=== PATIENT | female | born 1990 | race Caucasian/White ===

== ENCOUNTER 2024-02-05 08:28 | Emergency (ER) | payer SELFPAY ==
[~2024-02-05] VITALS: Ht 152.4 cm; Wt 45.0 kg
[2024-02-05 08:30] VITALS: O2SAT 99
[2024-02-05 09:21] LABS: CLARITY URINE CLEAR (CLEAR); COLOR URINE YELLOW (YELLOW); GLUCOSE URINE NEGATIVE (NEGATIVE); KETONES URINE NEGATIVE (NEGATIVE); LEUKOCYTE ESTERASE URINE NEGATIVE (NEGATIVE); NITRITE URINE NEGATIVE (NEGATIVE); OCCULT BLOOD URINE NEGATIVE (NEGATIVE); PROTEIN URINE NEGATIVE (NEGATIVE); SPECIFIC GRAVITY URINE 1.023 (1.005-1.030); UROBILINOGEN URINE 0.2 E.U./dL (0.2-1.0)
[2024-02-05 09:22] LABS: BASOPHILS % 0.3 % (0.0-2.0); EOSINOPHILS % 0.9 % (0.0-5.0); HEMATOCRIT. 38.6 % (36.0-48.0); HEMOGLOBIN. 13.1 g/dL (12.0-16.0); LYMPHOCYTES % 15.7 % (20.0-50.0); MEAN CORPUSCULAR HEMOGLOBIN 31.1 pg (28.0-32.0); MEAN CORPUSCULAR HGB CONC 33.9 g/dL (31.0-37.0); MEAN CORPUSCULAR VOLUME 91.8 fL (81.0-99.0); MONOCYTES % 6.4 % (2.0-8.0); NEUTROPHILS % 76.7 % (40.0-76.0); PLATELET 378 x1000/uL (130-400); RED BLOOD CELL COUNT 4.21 mill/uL (4.2-5.4); RED CELL DISTRIBUTION WIDTH 13.2 % (11.6-14.6); WHITE BLOOD COUNT 13.1 x1000/uL (4.5-11.0)
[2024-02-05 09:25] LABS: CHLORIDE 105 mEq/L (98-107); POTASSIUM 3.6 mEq/L (3.5-5.1); SODIUM 138 mEq/L (136-145)
[2024-02-05 09:26] LABS: CARBON DIOXIDE 29 mEq/L (21-32)
[2024-02-05 09:27] LABS: CALCIUM 10.1 mg/dL (8.7-10.4)
[2024-02-05 09:31] LABS: CREATININE 0.6 mg/dL (0.6-1.0); GLUCOSE 89 mg/dL (70-105); UREA NITROGEN BLOOD 12 mg/dL (9-23)
[2024-02-05] MEDS: SODIUM CHLORIDE 0.9% 1,000 ML IV ONE (09:34)
[2024-02-05] MEDS: MORPHINE SULFATE 4 MG/ML INJ (FOR IV/IM USE) IV STA (09:40)
[2024-02-05] MEDS: ONDANSETRON HCL 4MG/2ML INJ IV STA (09:41)
[2024-02-05 10:00] LABS: PROTHROMBIN TIME 10.8 sec (9.6-11.0)
[2024-02-05 10:03] LABS: CHLORIDE 108 mEq/L (98-107); POTASSIUM 3.8 mEq/L (3.5-5.1); SODIUM 138 mEq/L (136-145)
[2024-02-05 10:04] LABS: CARBON DIOXIDE 28 mEq/L (21-32)
[2024-02-05 10:07] LABS: HCG SCREEN NEGATIVE
[2024-02-05 10:09] LABS: CREATININE 0.5 mg/dL (0.6-1.0); GLUCOSE 106 mg/dL (70-105); UREA NITROGEN BLOOD 11 mg/dL (9-23)
[2024-02-05 10:10] LABS: TROPONIN I HIGH SENSITIVITY 6 ng/L (3.0-34)
[2024-02-05 10:11] LABS: ALANINE AMINOTRANSFERASE 15 IU/L (10-49); ALBUMIN 3.8 g/dL (3.2-4.8); ASPARTATE AMINOTRANSFERASE 24 IU/L (<34)
[2024-02-05 10:12] LABS: BILIRUBIN TOTAL 0.3 mg/dL (0.1-1.0); PROTEIN TOTAL 5.8 g/dL (6.0-8.3)
[2024-02-05 10:26] LABS: CALCIUM 9.2 mg/dL (8.7-10.4)
[2024-02-05] MEDS ORDERED: IBUP-2028 MT (10:36)
[2024-02-05] MEDS: KETOROLAC 15MG/ML VIAL IV ONE (11:20)
[2024-02-05 11:25] VITALS: BP 130/80; PULSE 80; RESP 16; TEMP 98.9
== END 2024-02-05 11:40 | disposition home or self-care (01) ==
LOC: ER 08:28
DX: R10.9 Unspecified abdominal pain (principal); F17.200 Nicotine dependence, unspecified, uncomplicated
CPT/HCPCS: 80053; 80048; 81003; 81025; 84703; 83690; 85025; 85610; 84484; 36415; 71045; 76705; 96361; 96374; 96375; 99285; J1885; J2405; J2270; J7030; Z7610 ×3

== ENCOUNTER 2024-03-30 08:49 | Emergency (ER) | payer MEDICAID ==
[~2024-03-30] VITALS: Ht 165.1 cm; Wt 65.0 kg
[~2024-03-30 08:49] MED LIST: IBUP-2028 MT
[2024-03-30 08:56] VITALS: O2SAT 98
[2024-03-30 09:22] LABS: BASOPHILS % 0.4 % (0.0-2.0); EOSINOPHILS % 2.2 % (0.0-5.0); HEMATOCRIT. 35.2 % (36.0-48.0); HEMOGLOBIN. 11.7 g/dL (12.0-16.0); LYMPHOCYTES % 28.9 % (20.0-50.0); MEAN CORPUSCULAR HEMOGLOBIN 30.2 pg (28.0-32.0); MEAN CORPUSCULAR HGB CONC 33.2 g/dL (31.0-37.0); MEAN CORPUSCULAR VOLUME 91.1 fL (81.0-99.0); MEAN PLATELET VOLUME 6.8 fl (7.4-10.4); MONOCYTES % 9.5 % (2.0-8.0); PLATELET 334 x1000/uL (130-400); RED BLOOD CELL COUNT 3.86 mill/uL (4.2-5.4); RED CELL DISTRIBUTION WIDTH 13.1 % (11.6-14.6); WHITE BLOOD COUNT 9.4 x1000/uL (4.5-11.0)
[2024-03-30] MEDS: MORPHINE SULFATE 4 MG/ML INJ (FOR IV/IM USE) IV ONE (09:22)
[2024-03-30] MEDS: ONDANSETRON HCL 4MG/2ML INJ IV ONE (09:22)
[2024-03-30 09:28] VITALS: BP 124/72; PULSE 66; RESP 16; TEMP 97.4
[2024-03-30 09:29] LABS: CHLORIDE 108 mEq/L (98-107); SODIUM 138 mEq/L (136-145)
[2024-03-30 09:30] LABS: CARBON DIOXIDE 25 mEq/L (21-32)
[2024-03-30 09:35] LABS: CREATININE 0.5 mg/dL (0.6-1.0); GLUCOSE 98 mg/dL (70-105)
[2024-03-30 09:45] LABS: INR 0.9; PROTHROMBIN TIME 10.5 sec (9.6-11.0)
[2024-03-30 09:58] LABS: UREA NITROGEN BLOOD 9 mg/dL (9-23)
== END 2024-03-30 09:55 | disposition left against medical advice (07) ==
LOC: ER 08:49
DX: R10.13 Epigastric pain (principal)
CPT/HCPCS: 80048; 83690; 85025; 85610; 36415; 96374; 96375; 99284; J2405; J2270; Z7610 ×2

== ENCOUNTER 2024-07-12 09:25 | Emergency (ER) | payer SELFPAY ==
[~2024-07-12] VITALS: Ht 152.4 cm; Wt 45.0 kg
[2024-07-12 09:27] VITALS: BP 112/76; PULSE 78; RESP 18; TEMP 98.3; O2SAT 94
== END 2024-07-12 11:20 | disposition left against medical advice (07) ==
LOC: ER 09:25
DX: R10.30 Lower abdominal pain, unspecified (principal); Z53.21 Procedure and treatment not carried out due to patient leaving prior to being seen by health care provider